=== PATIENT | male | born 1980 | race Caucasian/White ===

== ENCOUNTER 2017-02-07 12:06 | Emergency (ER) | payer BC ==
[~2017-02-07] VITALS: Ht 190.5 cm; Wt 117.0 kg
--- NOTE | ~2017-02-07 | CR63 ---
[facility]. [facility] A Service of [facility] & [facility] RADIOLOGY TEXT RESULTS PATIENT: LENA ORELLANA LOCATION: SED : 78 UNIT #: [id number] AGE: [address]: Maria R Jeronimo MD SEX: M ORDER DR: [id number] [place] [id number] E MR#: [id number] Acc #: [id number] NAME: LENA ORELLANA : 1980 SEX: M STUDY DATE/TIME: 02/07/2017 13:04 UNIT: SED ROOM: STUDY DESCRIPTION: CR Chest 2 View Attending Physician: Maria R Jeronimo M.D. Ordering Physician: Maria R Jeronimo M.D. Primary Care Physician: Primary Care Physician No MEDICAL IMAGING REPORT This report is preliminary unless electronic signature is present. EXAM Chest x-ray 02/07/2017 HISTORY 37-year-old male in the ED complaining of 1-day history of cough, congestion and sore throat. TECHNIQUE PA and lateral upright chest series. FINDINGS The examination is negative. The lungs are expanded and clear. No visible pulmonary infiltrate or pleural effusion. Heart size and pulmonary vascularity are normal. No change since 06/08/2016. IMPRESSION Negative chest. No change since 06/08/2016. Dictated by... Jorge Luis Shaver M.D. THIS IS AN ELECTRONICALLY VERIFIED REPORT Jorge Luis Shaver M.D. at 02/07/2017 5:46 PM RGW/alessia TD: 02/07/2017 16:40 JOB #: [id number] MEDICAL IMAGING REPORT Page 1 of 1
[~2017-02-07 12:06] MED LIST: BROMFED DM COU118 ML PO; FLEXERIL10 MG PO; NO MEDICATIONS; VOLTAREN75 MG PO
== END 2017-02-07 13:40 | disposition home or self-care (01) ==
LOC: SED 12:06
DX: J06.9 Acute upper respiratory infection, unspecified (principal); I10 Essential (primary) hypertension; F17.200 Nicotine dependence, unspecified, uncomplicated
CPT/HCPCS: 71020; 99283